=== PATIENT | female | born 2005 | race Caucasian/White ===

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

== ENCOUNTER 2025-03-12 18:46 | Emergency (ER) | payer SELFPAY ==
[2025-03-12] VITALS (11 sets, daily range): BP systolic 100–122; BP diastolic 68–91; PULSE 54–97; RESP 11–25; TEMP 36.6–36.7; O2SAT 96–100; BMI 22.6
--- NOTE | 2025-03-12 19:16 | RAD_ITS ---
PROCEDURE: LEFT ELBOW 2 VIEWS 03/12/2025 REASON FOR EXAM: INJURY TECHNIQUE: Procedure Code: RADEL2 Modality: DX Procedure: ELBOW 2 VIEWS Laterality: Left COMPARISON: None. FINDINGS: Suboptimal positioning. No acute fracture or dislocation appreciated. Alignment is anatomic. Preserved joint spaces. No marked soft tissue swelling or radiopaque foreign body. RAD/Elbow 2 Views IMPRESSION: Suboptimal positioning. No evidence of acute fracture or dislocation. Reading Location: [id number]
--- NOTE | 2025-03-12 19:16 | RAD_ITS ---
PROCEDURE: LEFT WRIST MIN 3 VIEWS 03/12/2025 REASON FOR EXAM: INJURY TECHNIQUE: Procedure Code: RADWR Modality: DX Procedure: WRIST MIN 3 VIEWS Laterality: Left COMPARISON: None. FINDINGS: Acute comminuted dorsally displaced and angulated fracture of the distal left radial metaphysis. Dorsally displaced ulnar styloid process fracture. Carpal alignment is grossly preserved. Prominent soft tissue swelling about the wrist. No radiopaque foreign body. RAD/Wrist min 3 Views IMPRESSION: Dorsally displaced comminuted fracture of the distal radial metaphysis. Dorsally displaced ulnar styloid process fracture. Reading Location: [id number]
[2025-03-12] MEDS: 0.9% Normal Saline (1000mL) 1,000 ML 999 ML IV (19:29)
[2025-03-12] MEDS: Midazolam 5 MG/ML Syringe IV (19:33)
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
--- NOTE | 2025-03-12 21:30 | RAD_ITS ---
PROCEDURE: WRIST 2 VIEWS 03/12/2025 REASON FOR EXAM: POSTREDUCTION TECHNIQUE: Procedure Code: RADWR2 Modality: DX Procedure: WRIST 2 VIEWS Laterality: Left COMPARISON: Earlier same day FINDINGS: Interval closed reduction and splinting of the left wrist, with improved osseous alignment of the comminuted intra-articular fracture of the distal radial metaphysis, and mildly displaced fracture of the ulnar styloid process. Persistent slight dorsal angulation of the distal radial dominant fragment. Carpal alignment appears maintained. Generalized soft tissue swelling about the wrist. RAD/Wrist 2 Views IMPRESSION: Closed reduction and splinting of the left wrist with improved osseous alignmen t of the distal radial and ulnar styloid process fractures. Reading Location: [id number]
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
== END 2025-03-12 22:41 | disposition home or self-care (01) ==
PROVIDERS: Emergency Provider Emergency Medicine; Visit Provider Emergency Medicine
DX: S52.352A Displaced comminuted fracture of shaft of radius, left arm, initial encounter for closed fracture (principal); F32.A Depression, unspecified; S52.612A Displaced fracture of left ulna styloid process, initial encounter for closed fracture; S20.219A Contusion of unspecified front wall of thorax, initial encounter; F41.9 Anxiety disorder, unspecified; V46.6XXA Car passenger injured in collision with other nonmotor vehicle in traffic accident, initial encounter
CPT/HCPCS: 25605; 71046; 73070; 73100; 73110; 96361; 96374; 96375; 99285; A4216; J2405

== ENCOUNTER 2025-03-21 05:43 | Day surgery (SDC) | payer MEDICAID, SELFPAY ==
[2025-03-21] VITALS (8 sets, daily range): BP systolic 113–127; BP diastolic 61–79; PULSE 51–81; RESP 16–18; TEMP 36.1–37.7; O2SAT 97–99; BMI 18.8
[2025-03-21 06:24] LABS: Internal QC Validated? YES +Cl - CLEAR BKGD; Pregnancy, Urine Negative Negative
[2025-03-21 06:25] LABS: Record Kit Lot#,Urine Preg 0000980607
--- NOTE | 2025-03-21 06:30 | RAD_ITS ---
PROCEDURE: FOREARM 2 VIEWS 03/21/2025 REASON FOR EXAM: ORIF LEFT DISTAL RADIUS TECHNIQUE: Procedure Code: RADFA Modality: DX Procedure: FOREARM 2 VIEWS Laterality: Left COMPARISON: Left wrist images dated 03/12/2025 FINDINGS: Bones: Two views demonstrate a radiopaque plate and screws to be projected over the comminuted, intra-articular fracture of the distal radial metaphyseal region. The radiopaque hardware appears to be in satisfactory position. There is an ulnar styloid fracture. Fluoro time is 49.2 seconds. Cumulative dose is 0.78 mGy RAD/Forearm 2 Views IMPRESSION: Two views demonstrate a radiopaque plate and screws to be projected over the co mminuted, intra-articular fracture of the distal radial metaphyseal region. The radiopaque hardware appears to be in satisfactor y position. There is an ulnar styloid fracture. Reading Location: [id number]
[2025-03-21] MEDS: Lactated Ringers 1,000 ML 15 ML IV (06:37)
--- NOTE | 2025-03-21 06:43 | PRE.ANES_ITS ---
ASA Classification* ASA Classification ASA Classification: 2 Assessment & Plan Anesthesia* Anesthesia Assessment Anesthesia Assessment: Discussed sedation and/or anesthesia options, risks, benefits, and alternatives with patient/parents/legal guardian/POA. Questions invited. The patient/parents/legal guardian/POA seems to understand and agrees to proceed with anesthesia plan. Reviewed the physical assessment, medical history, allergy history and patient home medications list prior to surgery/procedure/anesthetic and documented any changes. Performed airway and anesthesia risk assessments. Anesthesia Type Anesthesia Type: General and Block (This point benefits of a axillary block are discussed. She wants to hold off for now.) History Source History Obtained from:: Patient and Chart Anesthesia Focused Assessment* Temperature: 97 F Pulse Rate: 63 Blood Pressure: 118/68 Respiratory Rate: 16 Pulse Ox: 99 Oxygen Delivery Method: Room Air Airway Assessment Mouth opens: >3 cm Mallampati Score: I Teeth Condition: Intact Neck Range of motion (ROM): Full ROM Labs Anesthesia Preop lab: CBC WBC, (4.4-11.0) 9.6 K/mm3 11/22/13, 12:50 RBC, (4.2-5.4) 4.91 M/mm3 11/22/13, 12:50 Hgb, (12.0-15.0) 15.2 g/dl H 11/22/13, 12:50 Hct, (37-47) 42.7 % 11/22/13, 12:50 Plt Count, (150-450) 326 K/mm3 11/22/13, 12:50 CHEMISTRY Potassium, (3.5-5.1) 3.8 mmol/L 11/22/13, 12:50 Sodium, (136-145) 138 mmol/L 11/22/13, 12:50 BUN, (7-18) 6 mg/dL L 11/22/13, 12:50 Creatinine, (0.6-1.0) 0.5 mg/dL L 11/22/13, 12:50 Glucose, (70-110) 90 mg/dL 11/22/13, 12:50 COAG Urine Test Negative Negative Today, 06:10 Pre-Assessment Diagnosis/Proposed Procedure Planned Operative Procedure(s): ORIF DISTAL RADIUS LEFT Anesthesia History 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 When Was Last Pacemaker Check QUESTION #4 FULL TEXT: You/Your Family Experience fever (hyperthermia) with Anesthesia Last Oral Intake Last Oral intake: Last Oral Intake NPO since 00:00 03/21/25 06:27 Meds taken in AM with sips of water? Meds patient instructed to take am of surgery PONV PONV - supervisor wheel shop: PONV - supervisor wheel shop Female Yes 03/17/25 11:27 HX of Motion Sickness No 03/17/25 11:27 HX of N/V After Surgery No 03/17/25 11:27 Non-Smoker No 03/17/25 11:27 Duration of Surgery greater Yes 03/17/25 11:27 than 60 minutes Number of Risk Factors 2 03/17/25 11:27 PONV Score Moderate Risk 03/17/25 11:27 Height & Weight Height & Weight: Anesthesia: Height & Weight Height 5 ft 6 in 03/21/25 06:27 Weight: 53.07 kg 03/21/25 06:27 Body Mass Index (BMI) 18.8 03/21/25 06:27 Respiratory Assessment Respiratory Assessment - supervisor wheel shop: Respiratory Tract Infection Hx - supervisor wheel shop Hx Respiratory Tract Infection No 03/17/25 11:27 STOP Sleep Apnea STOP Sleep Apnea - supervisor wheel shop: STOP Sleep Apnea - supervisor wheel shop Hx Hypertension No 03/17/25 11:27 Hx Sleep Apnea No 03/17/25 11:27 CPAP BIPAP Do you snore loudly (louder No 03/17/25 11:27 than talking or can be heard Do you often feel tired/ No 03/17/25 11:27 fatigued/ sleepy during daytime? Has anyone observed you stop No 03/17/25 11:27 breathing during sleep? STOP Results Negative 03/17/25 11:27 QUESTION #5 FULL TEXT : Do you snore loudly (louder than talking or can be heard through closed doors)? Tobacco Use History Tobacco Use History - supervisor wheel shop: Tobacco Use History - supervisor wheel shop Tobacco Use Smoking Status Never smoker 03/17/25 11:27 Hx Tobacco Use Yes 03/17/25 11:27 Years Smoking Packs Smoked per Day Smoking Cessation Date was within the last 15 years Hx Smoking Cessation Date Hx Smoking Cessation Counseling Any additional information?: Yes Tobacco Use: Vapor (Patient vaped today.) Hematologic Medial History Hematologic Hx - supervisor wheel shop: Hematologic Medical Hx - health information coder Hx of Blood Transfusion No 03/17/25 11:27 Hx of Transfusion in last 3 No 03/17/25 11:27 Months Date of Last Transfusion (if within last 3 months) Ever experience any problems No 03/17/25 11:27 with transfusion(s)? Specify any problems Hx of Preganancy in last 3 No 03/17/25 11:27 Months Nurse Filling Out Transfusion DSCHRIBER 03/17/25 11:27 & Questions: Date: 03/17/25 03/17/25 11:27 Time: 11:29 03/17/25 11:27 Patient unable to answer at this time (ie. confused, unrespo /Reproduction History /Reproductive History - supervisor wheel shop: /Reproductive Hx- supervisor wheel shop Hx Now No 03/17/25 11:27 Gestational Age (in weeks): EDC: Hx Hx Para Hx Section SAB No 03/17/25 11:27 Does the father of the baby or his family experience fever w Father of the baby Malignant Hypertension history comment Active Medications Active Medications: Current Medications Generic Name Dose Route Start Last Admin Trade Name Freq PRN Reason Stop Dose Admin Cefazolin Sodium 2 gm/ Sodium 110 mls @ 200 mls/hr 03/21/25 07:00 Chloride IV 03/21/25 07:32 INTRAOP ONE Lactated Ringer's 1,000 mls @ 15 mls/hr 03/21/25 06:00 03/21/25 06:37 IV 15 mls/hr .Q48H ANTONINA Administration PFSH Medical History Wears glasses Marijuana use Substance abuse Abrasion Bruising Low iron Restless legs Migraine headache Injury of head and neck Seizures Constipation Vapes nicotine containing substance Shortness of breath on exertion History of edema PTSD (post-traumatic stress disorder) Depression Anxiety Home Medications Medication Instructions Recorded Last Taken Type ibuprofen 600 mg tablet 600 mg PO 4X/DAY PRN pain #4 0 tabs 03/12/25 03/20/25 20:00 Rx oxycodone-acetaminophen 5 mg-325 1 tab PO Q6H PRN pain 5 days #20 03/12/25 03/20/25 20:00 Rx mg tablet (Percocet) tabs Allergy/AdvReac Type Severity Reaction Status Date / Time sertraline (From Zoloft) Allergy Severe Hives Verified 03/21/25 06:25 Surgical History No history of previous surgery Social History Smoking Status: Never smoker Review of Systems (Anesthesia) ROS Narrative System reviewed and no additional complaints, except as documented.
[2025-03-21] MEDS: Midazolam 2 MG/2 ML Syringe IV (07:15)
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
[2025-03-21] MEDS: Lidocaine 1% (5 ml sdv) 5 ML Vial 8 ML IV (07:45)
[2025-03-21] MEDS: Cefazolin 1 GM/5 ML Vial 2 GM IV (07:51)
--- NOTE | 2025-03-21 09:06 | OP.PCM_ITS ---
Operative Report (Standard) Operative Information Date of Procedure: 03/21/25 Pre-Operative Diagnosis: 1. Left intra-articular displaced distal radius fracture 2. Left acute carpal tunnel syndrome Post-Operative Diagnosis: 1. Left intra-articular displaced distal radius fra cture 2. Left acute carpal tunnel syndrome Surgery/Procedure Performed: 1. Open reduction internal fixation left distal radius fracture, greater than 3 fragments 2. 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: Yes Spinning Frame Changer: Mel Singletary Tasks completed by product development assistant: Opening & closing, Implanting device and Retracting Additional assistant director of plant operations?: No Type of Anesthesia: General/Regional RN Documented Start/Stop Times: Operation Date: 03/21/25 07:30 Case Time Into Pre-Op 03/21/25 05:57 Out of Pre-Op 03/21/25 07:34 Anesthesia Start 03/21/25 07:37 Into Room 03/21/25 07:37 Procedure Start 03/21/25 07:56 Procedure End 03/21/25 08:59 Anesthesia End 03/21/25 09:05 Out of Room 03/21/25 09:05 Procedure Start Time: 07:56 Procedure Stop Time: 08:59 Select all DRAINS/GRAFTS/IMPLANTS that apply: Implanted device Implanted device details: Arthrex narrow volar locking plate, 3 hole Estimated Blood Loss: 10 cc Specimen collected: No Description of surgery: Patient was seen in preoperative holding area. She was identified by name, medical record number, date of . The operative extremity was marked with a surgical marker. We confirmed informed consent with the patient and all questions were answered to her satisfaction. As noted in H&P, carpal tunnel symptoms were demonstrated concern for acute carpal tunnel syndrome necessitated the need for a carpal tunnel release today at time of distal radius fixation. Informed consent was confirmed with the patient. Regional nerve block was then administered by anesthesia staff prior to the surgery. At time of her procedure, patient was brought to the operative suite and posit ioned supine on a standard operating table. All bony prominences were well- padded. General anesthesia was administered and LMA placed. After adequate anesthesia, a well-padded pneumatic tourniquet was applied to the upper arm of the operative extremity. We then spun the bed 90 degrees. We prepped and draped the operative extremity in a normal, sterile orthopedic fashion. We then performed a timeout with all parties in attendance in agreement the side, site, and operation be performed. No concerns were voiced and we elected to proceed. 1 g Ancef was administered for antibiotic prophylaxis prior to the incision by anesthesia staff. I first exsanguinated the operative extremity with an Esmarch bandage. Tourniquet was inflated to 250 mmHg for approximately 40 minutes. Esmarch was removed. I first of my attention of the carpal tunnel. A standard open carpal tunnel release was performed by first making a skin incision in line with the fourth ray and proximal to Torres's cardinal line and distal to the wrist crease. Full-thickness flaps were developed on the level of the palmar fascia. Palmar fascia was split in line with the incision. The transverse carpal ligament was then encountered and opened in line with the incision. The carpal tunnel contents were revealed and carpal tunnel explored. No significant changes to the median nerve were encountered. There was some thickened tenosynovium within the carpal tunnel which was resected from the adjacent flexor tendons. I then turned my attention to the wrist fracture. I planned a standard FCR approach over the flexor carpi radialis tendon along the volar wrist. Skin was sharply incised with a 15 blade scalpel down to the level of the tendon sheath. The FCR tendon sheath was identified and split longitudinall y in line with the incision. I then retracted the FCR tendon ulnarly, split the floor of the tendon sheath in line with the incision. The flexor pollicis longus muscle belly was then encountered and retracted ulnarly. The median nerve was noted ulnar to our surgical dissection field and interval. Superficial fraying was noted which I suspect is the result from traction injury from the injury itself. No significant lacerations were encountered or any repairable structures. The pronator quadratus was then encountered. A self- retaining retractor was placed deep. Performed an L-shaped tenotomy of the pronator quadratus and subperiosteally elevated it ulnarly. This exposed the fracture site. Fracture hematoma and early callus was debrided sharply. A brachioradialis tenotomy was performed in standard fashion. Anatomic reduction was then achieved by applying dorsal translation, traction and a volar translation of the carpus as well as ulnar deviation and some pronation. Percutaneous K wires were placed through the radial styloid to hold our reduction. Orthogonal fluoroscopy confirmed anatomic reduction. A narrow volar locking plate was then selected and held in place with K wires and planned location. I compressed the plate to bone with a bicortical screw in the distal segment of the plate. The distal cluster was then filled with unicortical locking screws and the cortical screw replaced with a locking screw. The shaft portion of plate was then compressed to bone and the proximal three 3.5 millimeter screw holes were filled with appropriately sized cortical screws. Final tightening was performed with the torque limiting screwdriver. Wound was copiously irrigated with normal saline solution. Anatomic reduction was confirmed. Screws and hardware appeared to be appropriately placed in size. Tourniquet is deflated. Hemostasis was excellent. The pronator quadratus was then laid across the plate. Dermis was reapproximated buried 3-0 Vicryl suture and skin reapproximated subcuticular 4-0 Monocryl. Carpal tunnel incision was closed with interrupted horizontal mattress 4-0 nylon suture. Dermabond and a Steri-Strip was placed over the FCR incision. A bulky sterile compression dressing was applied. A well-padded volar short arm fiberglass splint was applied. Patient was awakened from anesthesia and safely explained the operative suite. She tolerated the procedure well without apparent complication. Need for skilled assistant director of plant operations: Mel Singletary PA-C was critical to the outcome of the case. During the course of the procedure the physician assistant director of plant operations played a vital role. Her intimate knowledge of my steps in the procedure aided in safe and expedient completion of the procedure. The PA played a vital role in positioning particularly in obtaining the appropriate positioning. The PA was also vital in the retraction of soft tissues during the exposure and protecting vital structures. The PA was also vital and obtaining fracture reduction and assisting with hardware placement. She also played a vital role in closure and splint application with my direct supervision. Post Operative Plan: Weightbearing: Nonweightbearing operative extremity Antibiotics: Ancef x 1 dose preoperatively DVT Prophylaxis: 81 mg aspirin twice daily for DVT prophylaxis x 2 weeks, early mobilization [place]: None Dressing: Maintain splint, keep it clean dry and intact until follow-up. Transition out of brace in 2 weeks with removable wrist brace and initiation of physical or hand therapy, depending on access to care. X-Rays: 2 weeks postop in the office Pain Medication: Multimodal with Tylenol, NSAIDs and oxycodone as prescribed Follow-up: 2 weeks post-operatively with me in the office Surgical Findings: Greater than 3 fragment distal radius fracture with near anatomic reduction, stable fixation. Superficial injury noted to median nerve at the level of the fracture. Complications Complications: No Admit VTE Documentation VTE Present on Admission: No VTE Mechan Device Prophylaxis: SCD's VTE Pharm Prophylaxis ordered?: Yes
--- NOTE | 2025-03-21 11:01 | PCM.POST.ANE ---
Anesthesia: Postop Eval I Current Vital Signs Temperature: 97.2 F Pulse Rate: 70 Blood Pressure: 127/72 Respiratory Rate: 18 Pulse Ox: 97 Oxygen Delivery Method: Room Air Assessment Airway patent: Yes Spontaneous unlabored respirations: Yes Mental status: Awake and Calm nausea: No Vomiting: No Anesthesia Complication: No Fluid Hydration Crystalloid volume administer (ml): 600 Total IV fluid infused: 600 Progress Note Anesthesia document: Postop Eval 1 completed: Yes
--- NOTE | 2025-03-21 16:31 | POSTOPAN2_ITS ---
Anesthesia Postop Eval I Sum Postop Eval Completion status Anesthesia document: Postop Eval 1 completed: Yes Anesthesia Postop Eval I Summary Anesthesia Postop Eval I Summary: Anesthesia Postop Eval I: Assessment Summary Airway patent Yes 03/21/25 11:02 EVENTS TRAFFIC CONTROLLER.ACAR Spontaneous unlabored Yes 03/21/25 11:02 EVENTS TRAFFIC CONTROLLER.ACAR respirations Mental status Awake,Calm 03/21/25 11:02 EVENTS TRAFFIC CONTROLLER.ACAR nausea No 03/21/25 11:02 EVENTS TRAFFIC CONTROLLER.ACAR Vomiting No 03/21/25 11:02 EVENTS TRAFFIC CONTROLLER.ACAR Anesthesia Postop Eval I: Fluid Summary Crystalloid volume administer 600 03/21/25 11:02 EVENTS TRAFFIC CONTROLLER.ACAR (ml) Colloids volume administered ( ml) Blood Product volume administered (ml) Total IV fluid infused 600 03/21/25 11:02 EVENTS TRAFFIC CONTROLLER.ACAR Anesthesia Postop Eval I: Summary Notes Anesthesia Complication No 03/21/25 11:02 EVENTS TRAFFIC CONTROLLER.ACAR Anesthesia Complication Comment: Post-operative progress note Anesthesia: Postop Eval II Evaluation Mental status: Awake and Calm Pain Level: 0 nausea: No Vomiting: No
--- NOTE | 2025-03-21 16:31 | PCM.POSTANE2 ---
Anesthesia Postop Eval I Sum Postop Eval Completion status Anesthesia document: Postop Eval 1 completed: Yes Anesthesia Postop Eval I Summary Anesthesia Postop Eval I Summary: Anesthesia Postop Eval I: Assessment Summary Airway patent Yes 03/21/25 11:02 DENTAL HYGIENE TEACHER.ACAR Spontaneous unlabored Yes 03/21/25 11:02 DENTAL HYGIENE TEACHER.ACAR respirations Mental status Awake,Calm 03/21/25 11:02 DENTAL HYGIENE TEACHER.ACAR nausea No 03/21/25 11:02 DENTAL HYGIENE TEACHER.ACAR Vomiting No 03/21/25 11:02 DENTAL HYGIENE TEACHER.ACAR Anesthesia Postop Eval I: Fluid Summary Crystalloid volume administer 600 03/21/25 11:02 DENTAL HYGIENE TEACHER.ACAR (ml) Colloids volume administered ( ml) Blood Product volume administered (ml) Total IV fluid infused 600 03/21/25 11:02 DENTAL HYGIENE TEACHER.ACAR Anesthesia Postop Eval I: Summary Notes Anesthesia Complication No 03/21/25 11:02 DENTAL HYGIENE TEACHER.ACAR Anesthesia Complication Comment: Post-operative progress note Anesthesia: Postop Eval II Evaluation Mental status: Awake and Calm Pain Level: 0 nausea: No Vomiting: No
== END 2025-03-21 10:36 | disposition home or self-care (01) ==
LOC: SDC 05:43 → AC 05:44
PROVIDERS: Anesthesiology; Referring Provider Student in an Organized Health Care Education/Training Program; Visit Provider Student in an Organized Health Care Education/Training Program
DX: S52.572A Other intraarticular fracture of lower end of left radius, initial encounter for closed fracture (principal); G56.02 Carpal tunnel syndrome, left upper limb; V46.6XXA Car passenger injured in collision with other nonmotor vehicle in traffic accident, initial encounter
CPT/HCPCS: 25609; 64721; 01830; 64418; 73090; 76000; 81025; C1713; J2405